=== PATIENT | female | born 1970 | race Caucasian/White ===

== ENCOUNTER 2018-04-14 09:23 | Outpatient (CLI) | payer OTHER, SELFPAY ==
[2018-04-14] VITALS (16 sets, daily range): BP systolic 112–144; BP diastolic 67–95; PULSE 55–71; RESP 9–20; TEMP 36.2; O2SAT 96–100
--- NOTE | 2018-04-14 09:27 | DI.RAD.S_ITS ---
PROCEDURE: PAIN C/T INTERLAMINAR INJECT INDICATIONS: Cervical stenosis with left upper extremity radiculopathy FINDINGS: Fluoroscopic spot filming was performed to verify placement of spinal needles at the C6-7 level(s), as labeled on the films. Appropriate location(s) of the needle tip(s) was confirmed by injection of iodinated contrast. IMPRESSION: Intraoperative documentation of needle placement for epidural injection at the C6-7 level Dictated by: Markos Small M.D. on 04/14/2018 at 14:45 Approved by: Markos Small M.D. on 04/14/2018 at 14:46
--- NOTE | 2018-04-14 09:45 | PM.PROC.1 ---
Procedures Date/Time Date of procedure: 04/14/18 Time of procedure: 09:45 General Procedure description: PREOP DIAGNOSIS 1. CERVICAL STENOSIS, 2. CERVICAL HNP WITH UPPER EXTREMITY RADICULAR FEATURES, POST OP DIAGNOSIS 1. CERVICAL STENOSIS, 2. CERVICAL HNP WITH UPPER EXTREMITY RADICULAR FEATURES, PROCEDURES 1. FLUORSCOPICALLY GUIDED CONTRAST CONTROLLED INTERLAMINAR EPIDURAL STEROID INJECTION - C6/7 TL NAHUM PHYSICIAN: Otoniel Davis, DO INDICATIONS Karlee is referred by Dr. Mcfadden for treatment of Cervical HNP with Upper Extremity Paresthesias. FINDINGS Cervical Stenosis due to disc deterioration and nerve root irritation and nerve root irritation DESCRIPTION OF PROCEDURE Fluoroscopically guided, contrast-controlled C6/7 translaminar epidural steroid injection with conscious sedation. Following denial of allergy and review of potential side effects and complications, including, but not necessarily limited to, infection, allergic reaction, local tissue breakdown, temporary as well as permanent nerve injury, stroke, paralysis, and possible , the patient indicated that patient understood and agreed to proceed. An informed consent document was signed by the patient, witnessed by a nurse, and placed in the patient's chart. Additionally, other treatment options including modalities, medications, and physical therapy were reviewed with the patient. After review of previous anaesthesic history and IV conscious sedation the patient was deemed safe to proceed with todays procedure with IV conscious sedation as ASA class II designation. Safety time-out was performed to confirm patient ID, procedure to be performed and site of procedure. IV sedation was accomplished with a combination of 4mg of Versed and 50mcg of Fentanyl administered by the RN after DO order, titrated to patient comfort during the course of the procedure while the patient remained responsive to all verbal commands. In the prone position, following sterile prep and drape of the cervical region, the C6/7 translaminar space was identified fluoroscopically. The skin was anesthetized via a 25-gauge 1.5-inch needle with 1% lidocaine solution. At this point, a 25-gauge, 2.5-inch short bevel spinal needle was atraumatically introduced and advanced under fluoroscopic guidance into epidural space at the C6/7 translaminar space. Depth was confirmed on lateral view. Radiological data, including multiple fluoroscopic views of the cervical spine, reveal a spinal needle at the C6/7 translaminar space. Lateral views then show placement of the needle in the epidural space. Subsequent views show contrast material flowing superiorly and inferiorly in the epidural space. DSA fluoroscopy with live contrast injection, once again, confirmed no vascular or intrathecal uptake. At this point, using loss of resistance technique with saline and air, the epidural space was entered. Following negative aspiration, injection of approximately 1.5 cc of Isovue-200 with live fluoroscopy in the AP view confirmed epidural flow in the epidural space without vascular or intrathecal uptake observed. Subsequently, a test dose of 1 cc of 1% lidocaine solution was injected and patient was observed for two minutes without signs or symptoms of complications, including abdominal pain, shortness of breath, bilateral upper or lower extremity weakness, nausea and vomiting, prior to steroid injection. At this point, 3 cc or 30 mg of dexamethasone was then injected without incident. The patient tolerated the procedure well without signs or symptoms of complications prior to being transferred to the recovery area for further monitoring, The patient was then transferred to the recovery area where they were observed for an appropriate period of time after the injection. The patient reported a VAS score of 6 prior to the procedure and a post-procedure VAS of 0. Total Fluoroscopy Time: 37.0 seconds Total Conscious Time: 24min POST OP INSTRUCTIONS The patient was provided a Pain Log to continue to record their response to the target-specific procedure prior to follow-up visit with the referring provider. Additionally, specific post-injection care instructions and a contact number to our office were provided if concerns arise regarding possible complications associated with the procedure are suspected. Otoniel Davis DO Complications: none
[2018-04-14] MEDS: IOPAMIDOL 15 ML VIAL 3 ML INJ (10:03)
[2018-04-14] MEDS: DEXAMETHASONE 10 MG/ML VIAL 30 MG INJ (10:04)
[2018-04-14] MEDS: BUPIVACAINE 0.25% (PF) VIAL 2 ML INJ (10:04)
[2018-04-14] MEDS: MIDAZOLAM 5 MG/5 ML VIAL IV (10:05)
[2018-04-14] MEDS: fentaNYL 100 MCG/2 ML INJ 50 MCG IV (10:32)
--- NOTE | 2018-04-15 17:32 | PC.NURSE ---
Called pt for follow up post steroid injection. Pt reports she's been tired all day probably related to her blood sugars being elevated from the steroids. And her pain is tolerable. Her shoulder feels better but the potatoe in her arm is killing her pain 4-01/08. 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 She was really happy with her care here.
== END 2018-04-14 11:30 ==
PROVIDERS: PCP Internal Medicine; Visit Provider Physical Medicine & Rehabilitation
DX: M48.02 Spinal stenosis, cervical region (principal); M54.12 Radiculopathy, cervical region
CPT/HCPCS: 62321; 99152; J1040; J1100; J2250; J3010

== ENCOUNTER 2019-01-14 12:31 | Emergency (ER) | payer OTHER, SELFPAY ==
[2019-01-14 12:45] VITALS: BP 138/72; PULSE 74; RESP 17; TEMP 37.2; O2SAT 100
--- NOTE | 2019-01-14 12:51 | ED.NEUROSD ---
HPI - Neuro Symptoms/Deficit General Chief Complaint: Neuro Symptoms/Deficit Stated Complaint: STROKE LIKE SYMPTOMS Time Seen by Provider: 01/14/19 12:41 Source: patient Mode of arrival: ambulatory Limitations: no limitations History of Present Illness HPI Narrative: The patient is a 48-year-old female who presents with confusion. Off for about the last 2 days she has had episodes where she cannot remember things. 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 She was 18 minutes late seeing her patient which she says she has never late or does, and found herself scanning Facebook, which she typically doesn't do at work. She was at work today and coworkers thought that she had some slurring of speech off and on for about 2 hours. She had no facial drooping or unilateral weakness. She is a diabetic she was initially told to take Glucophage twice a day on the however she did not do it because it caused her diarrhea. She started taking it twice a day 5 days ago. Her sugar previously was about 200-220 and remains about the same. She has not had fevers she has no headache. She overall just does not feel well and feels like something is wrong is no chest pain no shortness of breath Onset (ago): day(s) (2) Timing confirmed by: spouse Location: speech History of same: No On Anticoagulants: No Related Data Home Medications Medication Instructions Recorded Confirmed Lantus U-100 Insulin 17 unit SQ BEDTIME 01/14/19 01/14/19 albuterol sulfate [ProAir HFA] 2 puff INHALATION Q4H PRN 01/14/19 01/14/19 celecoxib [Celebrex] 200 mg PO DAILY 01/14/19 01/14/19 epinephrine 0.3 mg IM PRN PRN 01/14/19 01/14/19 gabapentin 300 mg PO BID-TID 01/14/19 01/14/19 metformin 1 tab PO BID 01/14/19 01/14/19 Previous Rx's Medication Instructions Recorded Novolog U-100 Insulin aspart 5 - 10 unit SQ AC 90 Days #0 04/15/13 Allergies Allergy/AdvReac Type Severity Reaction Status Date / Time Cephalosporins Allergy Unknown Verified 04/14/18 09:47 codeine Allergy Unknown Verified 04/14/18 09:48 erythromycin base Allergy Unknown Verified 04/14/18 09:48 promethazine Allergy Unknown Verified 04/14/18 09:47 Droperidol Allergy Unknown Uncoded 12/10/17 13:01 Ibuprofen Allergy Unknown Uncoded 12/10/17 13:01 Prochlorperazine Allergy Unknown Uncoded 12/10/17 13:01 Review of Systems Review of Systems ROS Unobtainable: All systems reviewed & are unremarkable except as noted in HPI and below Constitutional Denies chills, Denies fever(s), Denies lethargy and Denies weakness Eyes Denies change in vision, Denies eye discharge, Denies irritation and Denies loss of vision Cardiovascular Denies chest pain, Denies irregular heart rhythm, Denies lightheadedness, Denies palpitations, Denies dyspnea, Denies dyspnea on exertion and Denies orthopnea Respiratory Denies cough, Denies dyspnea, Denies dyspnea on exertion and Denies wheezing Gastrointestinal Gastrointestinal: Denies abdominal pain, Denies change in bowel habits, Denies diarrhea, Denies nausea and Denies vomiting Musculoskeletal Denies back pain, Denies muscle weakness, Denies numbness and Denies tingling Integumentary/Breasts Denies pruritus, Denies erythema, Denies rash and Denies wounds Neurologic Reports abnormal speech, Denies loss of vision, Denies numbness, Denies tingling and Denies weakness Endocrine Denies palpitations Allergic/Immunologic Denies wheezing [facility] Medical History Diabetes (Acute) Social History Smoking Status: Former smoker alcohol intake: current (On occasion) substance use type: does not use Social History Smoking Status: Former smoker alcohol intake: current (On occasion) substance use type: does not use Exam Initial Vital Signs Initial Vital Signs: Vital Signs Temperature 99.0 F 01/14/19 12:45 Pulse Rate 74 01/14/19 12:45 Respiratory Rate 17 01/14/19 12:45 Blood Pressure 138/72 01/14/19 12:45 Pulse Oximetry 100 01/14/19 12:45 GENERAL: Well-appearing, well-nourished and in no acute distress. HEENT: Head atraumatic,EOMI, pupils reactive, face symmetric CARDIOVASCULAR: Regular rate and rhythm without murmurs, rubs or gallops. RESPIRATORY: Breath sounds equal bilaterally, no wheezes rales or rhonchi. ABDOMEN: Soft, nontender. Normoactive bowel sounds all 4 quadrants. No guarding or rebound. EXTREMITIES: Normal range of motion, no clubbing or edema. Neurovascularly intact NEUROLOGICAL: Alert and oriented x4.Normal gait and speech. Cranial nerves II through XII grossly intact. Good lklhgf-qj-ecid, good dxcw-jz-nyoy, left arm is actually noted to be a little bit weaker. 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 Scores NIH Stroke Scale Level of Conciousness: Alert, keenly responsive Ask month/age: Answers both questions correctly. Open/close eyes, close hand: Performs both tasks correctly Best gaze horizontal: Normal Visual jackson: No visual loss Facial palsy: Normal symetrical movement Left arm drift: No drift for full 10 sec Right arm drift: No drift for full 10 sec Left leg drift: No drift for full 10 sec Right leg drift: No drift for full 10 sec Limb ataxia: Absent Sensory on face/arms/legs: Normal, no sensory loss Best language: No aphasia, normal Dysarthria: Normal Extinction or inattention: No abnormality Total NIH Stroke scale score: 0 Course Orders Ordered: ED Orders 01/14/19 13:05 CT head/brain wo con Stat 01/14/19 13:30 Complete Blood Count AUTO DIFF Stat Comprehensive Metabolic Panel Stat Partial Thromboplastin Time Stat Prothrombin Time INR Stat 01/14/19 13:49 Lactate (Lactic Acid) Stat 01/14/19 14:02 Urine Drug Screen, Rapid Stat 01/14/19 14:11 MR stroke Stat Sodium Chloride (Normal Saline 0.9%) 1,000 mls @ 150 mls/hr IV CONT TANA Last Infusion: 01/14/19 16:13 Dose: 0 mls/hr Admin: 01/14/19 13:52 Dose: 150 mls/hr Discontinued Medications Lorazepam (Ativan) 1 mg PO NOW ONE Stop: 01/14/19 14:25 Last Admin: 01/14/19 14:27 Dose: Not Given Lorazepam (Ativan) 0.5 mg IV NOW ONE Stop: 01/14/19 14:26 Last Admin: 01/14/19 14:27 Dose: 0.5 mg Lorazepam (Ativan) 0.5 mg IV NOW ONE Stop: 01/14/19 14:49 Last Admin: 01/14/19 14:56 Dose: 0.5 mg Vital Signs - 8 hr 01/14/19 12:45 01/14/19 13:30 01/14/19 15:30 Temperature 99.0 F Pulse Rate 74 72 66 Respiratory Rate 17 10 L 13 Blood Pressure 138/72 Blood Pressure [Right Arm] 131/60 118/65 Pulse Oximetry 100 99 98 01/14/19 17:00 01/14/19 18:00 Temperature Pulse Rate 69 64 Respiratory Rate 15 14 Blood Pressure Blood Pressure [Right Arm] 117/67 113/59 L Pulse Oximetry 99 98 MDM - Neuro Symptoms/Deficit Lab Data Attestation: I reviewed the patient's lab results. Result diagrams: 01/14/19 13:30 01/14/19 13:30 Lab Results 01/14/19 01/14/19 01/14/19 Range/Units 13:30 13:30 13:30 WBC 7.4 (4.5-11.0) X10^3/uL RBC 4.14 (4.0-5.2) X10^6/uL Hgb 12.7 (12.0-16.0) g/dL Hct 37.7 (36-46) % MCV 91.0 (80-100) fL MCH 30.7 (26-34) PG MCHC 33.7 (30-36) % RDW 13.1 (11.6-14.8) % Plt Count 323 (150-400) X10^3/uL Neut % (Auto) 70.0 (50-75) % Lymph % (Auto) 19.3 L (25-40) % [place] % (Auto) 6.8 (3-14) % Eos % (Auto) 3.2 (2-4) % Baso % (Auto) 0.7 (0-2) % Neut # (Auto) 5200 (1867-6176) /uL Lymph # (Auto) 1400 (9897-3051) /uL [place] # (Auto) 500 (0-900) /uL Eos # (Auto) 200 (0-450) /uL Baso # (Auto) 0 (0-100) /uL PT 10.9 (10.1-12.7) SECONDS INR 1.0 (0.9-1.3) APTT 28 (26.4-36.2) SECONDS Sodium 135 L (137-145) mmol/L Potassium 4.0 (3.4-5.1) mmol/L Chloride 102 (98-107) mmol/L Carbon Dioxide 23 (22-32) mmol/L BUN 15 (7-17) mg/dL Creatinine 0.50 L (0.52-1.04) mg/dL Estimated GFR > 60.0 (>60) mL/min BUN/Creatinine Ratio 30.0 H (6-22) Glucose 318 H (70-100) mg/dL Lactate (0.7-2.1) mmol/L Calcium 9.2 (8.4-10.2) mg/dL Total Bilirubin 0.4 (0.2-1.3) mg/dL AST 15 (14-36) IU/L ALT 21 (9-52) IU/L Alkaline Phosphatase 80 (38-126) U/L Total Protein 6.9 (6.3-8.2) g/dL Albumin 4.0 (3.5-5.0) g/dL Globulin 2.9 (1.7-4.1) g/dL Albumin/Globulin Ratio 1.4 (1.0-2.8) Urine Opiates Screen (Negative) Ur Oxycodone Screen (Negative) Urine Methadone Screen (Negative) Ur Barbiturates Screen (Negative) U Tricyclic Antidepress (Negative) Ur Phencyclidine Scrn (Negative) Ur Amphetamines Screen (Negative) U Methamphetamines Scrn (Negative) Ur MDMA Scrn (Ecstasy) (Negative) U Benzodiazepines Scrn (Negative) Urine Cocaine Screen (Negative) U Marijuana (THC) Screen (Negative) 01/14/19 01/14/19 Range/Units 13:49 14:02 WBC (4.5-11.0) X10^3/uL RBC (4.0-5.2) X10^6/uL Hgb (12.0-16.0) g/dL Hct (36-46) % MCV (80-100) fL MCH (26-34) PG MCHC (30-36) % RDW (11.6-14.8) % Plt Count (150-400) X10^3/uL Neut % (Auto) (50-75) % Lymph % (Auto) (25-40) % [place] % (Auto) (3-14) % Eos % (Auto) (2-4) % Baso % (Auto) (0-2) % Neut # (Auto) (8275-6464) /uL Lymph # (Auto) (1055-6743) /uL [place] # (Auto) (0-900) /uL Eos # (Auto) (0-450) /uL Baso # (Auto) (0-100) /uL PT (10.1-12.7) SECONDS INR (0.9-1.3) APTT (26.4-36.2) SECONDS Sodium (137-145) mmol/L Potassium (3.4-5.1) mmol/L Chloride (98-107) mmol/L Carbon Dioxide (22-32) mmol/L BUN (7-17) mg/dL Creatinine (0.52-1.04) mg/dL Estimated GFR (>60) mL/min BUN/Creatinine Ratio (6-22) Glucose (70-100) mg/dL Lactate 0.9 (0.7-2.1) mmol/L Calcium (8.4-10.2) mg/dL Total Bilirubin (0.2-1.3) mg/dL AST (14-36) IU/L ALT (9-52) IU/L Alkaline Phosphatase (38-126) U/L Total Protein (6.3-8.2) g/dL Albumin (3.5-5.0) g/dL Globulin (1.7-4.1) g/dL Albumin/Globulin Ratio (1.0-2.8) Urine Opiates Screen Negative (Negative) Ur Oxycodone Screen Negative (Negative) Urine Methadone Screen Negative (Negative) Ur Barbiturates Screen Negative (Negative) U Tricyclic Antidepress Negative (Negative) Ur Phencyclidine Scrn Negative (Negative) Ur Amphetamines Screen Negative (Negative) U Methamphetamines Scrn Negative (Negative) Ur MDMA Scrn (Ecstasy) Negative (Negative) U Benzodiazepines Scrn Negative (Negative) Urine Cocaine Screen Negative (Negative) U Marijuana (THC) Screen Negative (Negative) Urine Dip Bedside Urine Glucose 1000 mg/dl Bedside Urine Bilirubin - Negative Bedside Urine Ketone +/- 5 Urine Specific [place] 1.020 Bedside Urine Occult Blood - Negative Bedside Urine pH 6.0 Bedside Urine Protein - Negative Bedside Urine Urobilinogen - Negative Bedside Urine Nitrite - Negative Bedside Urine Leukocytes - Negative Esterase Imaging Data CT scan - head: Radiologist's impression: PROCEDURE: CT HEAD/BRAIN WO CON INDICATIONS: confusion TECHNIQUE: Noncontrast 4.5 mm thick angled axial sections acquired from the foramen magnum to the vertex, with coronal and sagittal reformats. For radiation dose reduction, the following was used: automated exposure control, adjustment of mA and/or kV according to patient size. COMPARISON: [facility], CT, BRAIN W/O CONTRAST, 04/07/2014, 9:00. FINDINGS: Image quality: Excellent. CSF spaces: Basal cisterns are patent. No extra-axial fluid collections. Ventricles are normal in size and shape. Brain: No midline shift. No intracranial masses or hemorrhage. Perez-white matter interface is normal. Skull and face: Calvarium and visualized facial bones are intact, without suspicious lesions. Sinuses: Visualized sinuses and mastoids are clear. IMPRESSION: Unremarkable head CT. No acute intracranial hemorrhage. Dictated by: Natalio Wall M.D. on 01/14/2019 at 12:25 MRI - head: Radiologist's impression: PROCEDURE: MR STROKE Pre- and post-contrast brain MRI, non-contrast brain MR angiogram, pre- and postcontrast neck MR angiogram INDICATIONS: tia x 2 days confusion speech difficulty TECHNIQUE: Brain: Noncontrast axial T1 spin echo, axial T2 fast spin echo, sagittal and axial FLAIR, coronal T2 fast spin echo, axial gradient echo, axial diffusion and ADC through the brain. After the administration of contrast, axial 3D VIBE of the cranial vasculature and brain. Brain MRA: Non-contrast 3-D time of flight MR angiogram, with multiple lkwlodj-tzzckczxu-krgdqdeswv (MIP) reformats performed. Neck MRA: Axial and sagittal TruFISP through the neck. Coronal dynamic MR angiogram during administration of contrast in the arterial and venous phases, with 3-dimenstional iixfwvo-rwjsqwwpx-juoazehyry (MIP) reformats constructed from subtraction images. COMPARISON: [facility], CT, CT HEAD/BRAIN WO CON, 01/14/2019, 13:08. FINDINGS: Image quality: Excellent. BRAIN: CSF spaces: Ventricles are normal in size and shape. Basal cisterns are patent. No extra-axial fluid collections. Brain: No intracranial bleeds or mass effects. Perez-white matter interface is normal. Diffusion weighted images show no acute ischemic insults. Brainstem appears normal. Normal intravascular flow voids are present. No abnormal intracranial enhancement. Skull and face: Calvarial marrow signal is normal. Orbits appear normal. Sinuses: Mastoids are clear. Mild mucosal thickening involving the ethmoid sinuses bilaterally and the right maxillary sinus. BRAIN MR ANGIOGRAM: Anterior circulation: Intracranial internal carotid arteries are normal in size and enhancement. The flow within the paired anterior cerebral arteries is normal and symmetric. 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 The flow within the middle cerebral arteries is normal and symmetric. The anterior communicating artery is seen. No stenoses or occlusions. Posterior circulation: The visualized portions of the vertebral arteries demonstrate normal caliber, and join to form a normal appearing basilar artery. The flow within the posterior cerebral arteries is normal and symmetric. No stenoses, occlusions, or aneurysms. NECK MR ANGIOGRAM: Carotids: Great vessels demonstrate a conventional anatomy as they arise from the aortic arch. The origins of the common carotid arteries appear patent. The calibers and courses of both common carotid arteries are normal. The bifurcation regions appear normal bilaterally. The internal carotid arteries demonstrate normal course and caliber. Posterior circulation: The origins of the vertebral arteries appear patent. More superior portions of both vertebral arteries demonstrate normal course and caliber, and join to form a normal appearing basilar artery. Miscellaneous: Subclavian arteries appear patent. Pre-contrast images through the neck show no soft tissue abnormalities. IMPRESSION: BRAIN MRI: 1. No acute intracranial abnormalities. 2. Mild paranasal sinus disease as described. BRAIN MR ANGIOGRAM: 1. No high-grade stenosis or occlusion in anterior circulations. 2. No high-grade stenosis or occlusion in posterior circulations. 3. 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 NECK MR ANGIOGRAM: 1. Normal cervical carotid arteries bilaterally. 2. Normal cervical vertebral arteries bilaterally. Dictated by: Kaya Guzman M.D. on 01/14/2019 at 15:56 ECG Data Attestation: I personally reviewed and interpreted this ECG as follows: Prior ECG tracings: not available for review Interpretation: Normal sinus rhythm rate 64 GA interval [address] changes or T-wave inversions no priors to compare MDM Narrative Medical decision making narrative: Patient has episodes of confusion but no actual focal deficits. No sign of infection. Diabetes seems uncontrolled with elevated glucose levels. Confusion not likely related to increase in metformin. She has no headache. MRI did find a 2 mm saccular aneurysm. This is an incidental. She has no headache signs or symptoms. I have called neuro surgery at [facility], Dr. Fonseca. Recommend outpatient follow-up. No focal deficits at this time. Her phone number was given to them and expect call within the next 2 days. Discharge Plan Departure Patient Disposition: Home Clinical Impression: Aneurysm, cerebral, nonruptured Instructions: DI for Transient Ischemic Attack, Brain Aneurysm Activity Restrictions/Additional Instructions: *You have been diagnosed with cerebral aneurysm *What to do: At this time no cause for confusion. Diabetes may not be well controlled. *Continue to take medications as directed *Follow up with your primary care provider in 2-3 days Follow-up with neurosurgery. Expected to have a phone call from them in the next 2-3 business days. *Return to ER if you should have worsening headache, weakness, facial drooping, slurring of speech, speech difficulty or any new, worsening or concerning symptoms Prescriptions: No Action Novolog U-100 Insulin aspart 100 UNIT/1 ML solution 5 - 10 unit SQ AC 90 Days Qty: 0 RF: 3 celecoxib [Celebrex] 200 mg Capsule 200 mg PO DAILY RF: 0 albuterol sulfate [ProAir HFA] 90 mcg/actuation Hfa Aerosol Inhaler 2 puff Inhalation Q4H PRN (Reason: Shortness Of Breath) RF: 0 metformin 500 mg Tablet Extended Release 24 Hr 1 tab PO BID RF: 0 Lantus U-100 Insulin 100 UNIT/1 ML solution 17 unit SQ BEDTIME RF: 0 gabapentin 300 mg capsule 300 mg PO BID-TID RF: 0 epinephrine 0.3 MG/0.3 ML auto-injector 0.3 mg IM PRN PRN (Reason: Allergic Reaction) RF: 0 Referrals: Ulisses Mcfadden MD [Primary Care Provider] - Stand Alone Forms: Work Release Note
--- NOTE | 2019-01-14 13:05 | DI.CT.S_ITS ---
PROCEDURE: CT HEAD/BRAIN WO CON INDICATIONS: confusion TECHNIQUE: Noncontrast 4.5 mm thick angled axial sections acquired from the foramen magnum to the vertex, with coronal and sagittal reformats. For radiation dose reduction, the following was used: automated exposure control, adjustment of mA and/or kV according to patient size. COMPARISON: [facility], CT, BRAIN W/O CONTRAST, 04/07/2014, 9:00. FINDINGS: Image quality: Excellent. CSF spaces: Basal cisterns are patent. No extra-axial fluid collections. Ventricles are normal in size and shape. Brain: No midline shift. No intracranial masses or hemorrhage. Perez-white matter interface is normal. Skull and face: Calvarium and visualized facial bones are intact, without suspicious lesions. Sinuses: Visualized sinuses and mastoids are clear. IMPRESSION: Unremarkable head CT. No acute intracranial hemorrhage. Dictated by: Natalio Wall M.D. on 01/14/2019 at 12:25 Approved by: Natalio Wall M.D. on 01/14/2019 at 12:28
[2019-01-14 13:30] VITALS: BP 131/60; PULSE 72; RESP 10; O2SAT 99
[2019-01-14 13:47] LABS: Add Manual Diff / Slide Review NO; Basophils Absolute Auto 0 /uL (0-100); Basophils Percent Auto 0.7 % (0-2); Eosinophils Absolute Auto 200 /uL (0-450); Eosinophils Percent Auto 3.2 % (2-4); Hematocrit 37.7 % (36-46); Hemoglobin 12.7 g/dL (12.0-16.0); Lymphocytes Absolute Auto 1400 /uL (1100-4500); Lymphocytes Percent Auto 19.3 % (25-40); Mean Corpuscular HGB Conc 33.7 % (30-36); Mean Corpuscular Hemoglobin 30.7 PG (26-34); Monocytes Absolute Auto 500 /uL (0-900); Monocytes Percent Auto 6.8 % (3-14); Neutrophils Absolute Auto 5200 /uL (1500-7000); Platelet Count 323 X10^3/uL (150-400); Red Blood Cell Count 4.14 X10^6/uL (4.0-5.2); Red Cell Distribution Width 13.1 % (11.6-14.8); White Blood Cell Count 7.4 X10^3/uL (4.5-11.0)
[2019-01-14] MEDS: SODIUM CHLORIDE 0.9% 1,000 ML 150 ML IV (13:52)
[2019-01-14 13:56] LABS: Prothrombin Time 10.9 SECONDS (10.1-12.7)
[2019-01-14 13:59] LABS: PTT Partial Thromboplastin Tim 28 SECONDS (26.4-36.2)
[2019-01-14 14:04] LABS: Alanine Aminotransferase 21 IU/L (9-52); Albumin Globulin Ratio 1.4 (1.0-2.8); Alkaline Phosphatase 80 U/L (38-126); Aspartate Aminotransferase 15 IU/L (14-36); Bilirubin Total 0.4 mg/dL (0.2-1.3); Blood Urea Nitrogen 15 mg/dL (7-17); Calcium 9.2 mg/dL (8.4-10.2); Carbon Dioxide 23 mmol/L (22-32); Chloride 102 mmol/L (98-107); Estimated Glomerular Filt Rate > 60.0 mL/min (>60); Globulin 2.9 g/dL (1.7-4.1); Glucose 318 mg/dL (70-100); HEMOLYSIS < 15 (0-50); Sodium 135 mmol/L (137-145); Total Protein 6.9 g/dL (6.3-8.2)
[2019-01-14 14:10] LABS: Lactate (Lactic Acid) 0.9 mmol/L (0.7-2.1)
--- NOTE | 2019-01-14 14:11 | DI.MRI.S_ITS ---
PROCEDURE: MR STROKE Pre- and post-contrast brain MRI, non-contrast brain MR angiogram, pre- and postcontrast neck MR angiogram INDICATIONS: tia x 2 days confusion speech difficulty TECHNIQUE: Brain: Noncontrast axial T1 spin echo, axial T2 fast spin echo, sagittal and axial FLAIR, coronal T2 fast spin echo, axial gradient echo, axial diffusion and ADC through the brain. After the administration of contrast, axial 3D VIBE of the cranial vasculature and brain. Brain MRA: Non-contrast 3-D time of flight MR angiogram, with multiple baxlnvb-odjdqfkvh-rjxgrteoac (MIP) reformats performed. Neck MRA: Axial and sagittal TruFISP through the neck. Coronal dynamic MR angiogram during administration of contrast in the arterial and venous phases, with 3-dimenstional emgjdng-acczoujkg-zhzdguhidv (MIP) reformats constructed from subtraction images. COMPARISON: [facility], CT, CT HEAD/BRAIN WO CON, 01/14/2019, 13:08. FINDINGS: Image quality: Excellent. BRAIN: CSF spaces: Ventricles are normal in size and shape. Basal cisterns are patent. No extra-axial fluid collections. Brain: No intracranial bleeds or mass effects. Perez-white matter interface is normal. Diffusion weighted images show no acute ischemic insults. Brainstem appears normal. Normal intravascular flow voids are present. No abnormal intracranial enhancement. Skull and face: Calvarial marrow signal is normal. Orbits appear normal. Sinuses: Mastoids are clear. Mild mucosal thickening involving the ethmoid sinuses bilaterally and the right maxillary sinus. BRAIN MR ANGIOGRAM: Anterior circulation: Intracranial internal carotid arteries are normal in size and enhancement. The flow within the paired anterior cerebral arteries is normal and symmetric. 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 The flow within the middle cerebral arteries is normal and symmetric. The anterior communicating artery is seen. No stenoses or occlusions. Posterior circulation: The visualized portions of the vertebral arteries demonstrate normal caliber, and join to form a normal appearing basilar artery. The flow within the posterior cerebral arteries is normal and symmetric. No stenoses, occlusions, or aneurysms. NECK MR ANGIOGRAM: Carotids: Great vessels demonstrate a conventional anatomy as they arise from the aortic arch. The origins of the common carotid arteries appear patent. The calibers and courses of both common carotid arteries are normal. The bifurcation regions appear normal bilaterally. The internal carotid arteries demonstrate normal course and caliber. Posterior circulation: The origins of the vertebral arteries appear patent. More superior portions of both vertebral arteries demonstrate normal course and caliber, and join to form a normal appearing basilar artery. Miscellaneous: Subclavian arteries appear patent. Pre-contrast images through the neck show no soft tissue abnormalities. IMPRESSION: BRAIN MRI: 1. No acute intracranial abnormalities. 2. Mild paranasal sinus disease as described. BRAIN MR ANGIOGRAM: 1. No high-grade stenosis or occlusion in anterior circulations. 2. No high-grade stenosis or occlusion in posterior circulations. 3. 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 NECK MR ANGIOGRAM: 1. Normal cervical carotid arteries bilaterally. 2. Normal cervical vertebral arteries bilaterally. Dictated by: Kaya Guzman M.D. on 01/14/2019 at 15:56 Approved by: Kaya Guzman M.D. on 01/14/2019 at 16:07
[2019-01-14 14:23] LABS: Urine Amphetamines Negative (Negative); Urine Barbiturates Negative (Negative); Urine Benzodiazepines Negative (Negative); Urine Cocaine Negative (Negative); Urine MDMA Negative (Negative); Urine Methadone Negative (Negative); Urine Methamphetamines Negative (Negative); Urine Morphine/Opi cutoff 2000 Negative (Negative); Urine Oxycodone Negative (Negative); Urine Phencyclidine Negative (Negative); Urine Tetrahydrocannabinol Negative (Negative); Urine Tricyclic Antidepressant Negative (Negative)
[2019-01-14] MEDS: LORazepam 2 MG/ML INJ 0.5 MG IV ×2 (14:27→14:56)
[2019-01-14 15:30] VITALS: BP 118/65; PULSE 66; RESP 13; O2SAT 98
[2019-01-14 17:00] VITALS: BP 117/67; PULSE 69; RESP 15; O2SAT 99
[2019-01-14 18:00] VITALS: BP 113/59; PULSE 64; RESP 14; O2SAT 98
== END 2019-01-14 19:06 | disposition home or self-care (01) ==
PROVIDERS: Emergency Provider Emergency Medicine; PCP Internal Medicine
DX: I67.1 Cerebral aneurysm, nonruptured (principal); R47.81 Slurred speech; R41.0 Disorientation, unspecified
CPT/HCPCS: 36591; 70450; 70548; 70553; 80053; 80305; 81003; 83605; 85025; 85610; 85730; 93005; 93010; 96361; 96374; 99283; 99285; 99291; A9579; J2060

== ENCOUNTER 2019-09-25 16:59 | Emergency (ER) | payer OTHER, SELFPAY ==
--- NOTE | 2019-09-25 17:26 | DI.RAD.S_ITS ---
PROCEDURE: XR CHEST 2V INDICATIONS: r/o pna TECHNIQUE: 2 views of the chest were acquired. COMPARISON: [facility], , CHEST 2 VIEW, 12/24/2011, 9:53. FINDINGS: Surgical changes and devices: None. Lungs and pleura: Lungs are clear. No pleural effusions or pneumothorax. Small calcified granuloma on the lateral margin of the left mid lung is present. Mediastinum: Mediastinal contours are normal. Heart size is normal. Bones and chest wall: No suspicious bony abnormalities. Soft tissues appear unremarkable. IMPRESSION: Negative chest. No acute cardiopulmonary process is evident. Dictated by: Natalio Wall M.D. on 09/25/2019 at 16:53 Approved by: Natalio Wall M.D. on 09/25/2019 at 16:53
[2019-09-25 17:29] VITALS: BP 139/72; PULSE 65; RESP 14; TEMP 37.2; O2SAT 99
[2019-09-25 18:21] LABS: Add Manual Diff / Slide Review NO; Basophils Absolute Auto 0 /uL (0-100); Basophils Percent Auto 0.5 % (0-2); Eosinophils Absolute Auto 300 /uL (0-450); Hematocrit 37.6 % (36-46); Hemoglobin 12.7 g/dL (12.0-16.0); Lymphocytes Absolute Auto 1000 /uL (1100-4500); Lymphocytes Percent Auto 23.8 % (25-40); Mean Corpuscular HGB Conc 33.7 % (30-36); Mean Corpuscular Hemoglobin 31.1 PG (26-34); Mean Corpuscular Volume 92.3 fL (80-100); Monocytes Absolute Auto 400 /uL (0-900); Neutrophils Absolute Auto 2600 /uL (1500-7000); Neutrophils Percent Auto 59.7 % (50-75); Platelet Count 224 X10^3/uL (150-400); Red Blood Cell Count 4.07 X10^6/uL (4.0-5.2); Red Cell Distribution Width 13.4 % (11.6-14.8); White Blood Cell Count 4.3 X10^3/uL (4.5-11.0)
[2019-09-25 18:33] LABS: Alanine Aminotransferase 31 IU/L (<35); Albumin 4.1 g/dL (3.5-5.0); Albumin Globulin Ratio 1.3 (1.0-2.8); Alkaline Phosphatase 116 U/L (38-126); Aspartate Aminotransferase 32 IU/L (14-36); Bilirubin Total 0.3 mg/dL (0.2-1.3); Blood Urea Nitrogen 10 mg/dL (7-17); Calcium 9.2 mg/dL (8.4-10.2); Carbon Dioxide 23 mmol/L (22-32); Chloride 100 mmol/L (98-107); Estimated Glomerular Filt Rate > 60.0 mL/min (>60); Globulin 3.1 g/dL (1.7-4.1); Glucose 255 mg/dL (70-100); HEMOLYSIS < 15 (0-50); Potassium 3.7 mmol/L (3.4-5.1); Sodium 135 mmol/L (137-145); Total Protein 7.2 g/dL (6.3-8.2)
[2019-09-25 18:41] LABS: B Type Natriuretic Peptide < 100 (<100)
[2019-09-25] MEDS: DOXYCYCLINE HYCLATE 100 MG TABLET PO (19:17)
[2019-09-25] MEDS: CODEINE/ACETAMINOPHEN 30/300 TABLET 1 TAB PO (19:17)
[2019-09-25] MEDS: DEXTROMETHORPHAN PO (19:24)
[2019-09-25] MEDS: GUAIFENESIN PO (19:24)
[2019-09-25 19:44] VITALS: BP 134/77; PULSE 74; RESP 16; O2SAT 97
--- NOTE | 2019-09-25 20:14 | ED_ITS ---
HPI - URI/Sore Throat <Yoanna Marte, [employer] - Last Filed: 09/25/19 20:18> General Chief Complaint: Upper Respiratory Symptoms Stated Complaint: thinks she has pneumonia Time Seen by Provider: 09/25/19 17:27 Source: patient and family Mode of arrival: Ambulatory Limitations: no limitations History of Present Illness HPI Narrative: The patient is a 49-year-old female former smoker with history of diabetes who presents with her for chief complaint of a productive cough for the past 2-3 weeks. She complains of associated muscle aches and chills. She has a history of asthma. She has a productive cough, states as though she feels that she has rattling in her chest. She states she is coughing up different colored mucus. She is concerned that she has pneumonia. She has been using her albuterol. Does complain of some ear pain, muscle aches from coughing, states that she is unable to sleep. She states that she is coughing so much that she is very uncomfortable. Denies any nausea vomiting or diarrhea. Related Data Home Medications Medication Instructions Recorded Confirmed Lantus U-100 Insulin 17 unit SQ BEDTIME 01/14/19 01/14/19 albuterol sulfate [ProAir HFA] 2 puff INHALATION Q4H PRN 01/14/19 01/14/19 celecoxib [Celebrex] 200 mg PO DAILY 01/14/19 01/14/19 epinephrine 0.3 mg IM PRN PRN 01/14/19 01/14/19 gabapentin 300 mg PO BID-TID 01/14/19 01/14/19 metformin 1 tab PO BID 01/14/19 01/14/19 Previous Rx's Medication Instructions Recorded Novolog U-100 Insulin aspart 5 - 10 unit SQ AC 90 Days #0 04/15/13 codeine-guaifenesin [Guaifenesin 10 ml PO Q4-6H PRN #120 ml 09/25/19 AC] doxycycline hyclate 100 mg PO BID #20 cap 09/25/19 Allergies Allergy/AdvReac Type Severity Reaction Status Date / Time Cephalosporins Allergy Unknown Verified 04/14/18 09:47 codeine Allergy Unknown Verified 04/14/18 09:48 erythromycin base Allergy Unknown Verified 04/14/18 09:48 promethazine Allergy Unknown Verified 04/14/18 09:47 Droperidol Allergy Unknown Uncoded 12/10/17 13:01 Ibuprofen Allergy Unknown Uncoded 12/10/17 13:01 Prochlorperazine Allergy Unknown Uncoded 12/10/17 13:01 Review of Systems <PARVIZ DeanP- - Last Filed: 09/25/19 20:18> Review of Systems Narrative: GENERAL: See HPI HEENT: Denies sinus pain, ear pain, sore throat, difficulty swallowing, dizziness. RESPIRATORY: See HPI CARDIOVASCULAR: Denies chest pain, palpitations, orthopnea, edema, GASTROINTESTINAL: Denies nausea, vomiting, abdominal pain, diarrhea, constipation, melena. : Denies dysuria, frequency, incontinence, hematuria, urinary retention. MUSCULOSKELETAL: denies weakness, joint pain, or bony pain SKIN: Denies rash, skin lesions, or other NEUROLOGIC: Denies weakness, headache, numbness, change in speech, confusion, seizures, incoordination. PSYCHIATRIC: No concerning psychosocial issues. 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 HEAD: Atraumatic. Normocephalic. No temporal or scalp tenderness. EYES: Pupils equal round and reactive. Extraocular motions intact. No scleral icterus. No injection or drainage. ENT: Nose without bleeding, purulent drainage or septal hematoma. Throat without erythema, tonsillar hypertrophy or exudate. Uvula midline. Airway patent. Bilateral TMs pearly barajas NECK: Trachea midline. No JVD or lymphadenopathy. Supple, nontender, no meningeal signs. CARDIOVASCULAR: Regular rate and rhythm RESPIRATORY: Crackles right lower lobe to auscultation. No wheezes, rales, or rhonchi. GASTROINTESTINAL: Abdomen soft, non-tender, nondistended. No hepato- splenomegaly, or palpable masses. No guarding. EXTREMITIES: No clubbing, cyanosis, or edema. No joint tenderness, effusion, or edema noted. BACK: Nontender without deformity or crepitance. No flank tenderness. NEURO: AOx3. SKIN: No rash or erythema on visible skin Initial Vital Signs Initial Vital Signs: Vital Signs Temperature 98.9 F 09/25/19 17:29 Pulse Rate 65 09/25/19 17:29 Respiratory Rate 14 09/25/19 17:29 Blood Pressure 139/72 09/25/19 17:29 Pulse Oximetry 99 09/25/19 17:29 <Oziel Chau DO - Last Filed: 09/25/19 21:23> Initial Vital Signs Initial Vital Signs: Vital Signs Temperature 98.9 F 09/25/19 17:29 Pulse Rate 65 09/25/19 17:29 Respiratory Rate 14 09/25/19 17:29 Blood Pressure 139/72 09/25/19 17:29 Pulse Oximetry 99 09/25/19 17:29 Scores <NE Dean - Last Filed: 09/25/19 20:18> GCS Amy coma scale eye opening: Spontaneous Amy coma scale verbal response: Orientated [place] coma scale motor response: Obey commands [place] coma scale total score: 15 Course <NE Dean - Last Filed: 09/25/19 20:18> Orders Ordered: ED Orders 09/25/19 17:26 Chest [XR chest 2V] Stat 09/25/19 18:12 B Type Natriuretic Peptide Stat CMP [Comprehensive Metabolic Panel] Stat Complete Blood Count AUTO DIFF Stat Discontinued Medications Acetaminophen/Codeine Phosphate (Tylenol #3) 1 tab PO NOW ONE Stop: 09/25/19 19:05 Last Admin: 09/25/19 19:17 Dose: 1 tab Documented by: DEVAN Doxycycline Hyclate (Vibramycin) 100 mg PO NOW ONE Stop: 09/25/19 19:05 Last Admin: 09/25/19 19:17 Dose: 100 mg Documented by: DEVAN Guaifenesin/Dextromethorphan (Robitussin Dm Syrup) 10 ml PO NOW ONE Stop: 09/25/19 19:05 Last Admin: 09/25/19 19:24 Dose: 10 ml Documented by: DEVAN Vital Signs Vital signs: Vital Signs - 8 hr 09/25/19 17:29 09/25/19 19:44 Temperature 98.9 F Pulse Rate 65 74 Respiratory Rate 14 16 Blood Pressure 139/72 134/77 Pulse Oximetry 99 97 <Oziel Chau DO - Last Filed: 09/25/19 21:23> Orders Ordered: ED Orders 09/25/19 17:26 Chest [XR chest 2V] Stat 09/25/19 18:12 B Type Natriuretic Peptide Stat CMP [Comprehensive Metabolic Panel] Stat Complete Blood Count AUTO DIFF Stat Discontinued Medications Acetaminophen/Codeine Phosphate (Tylenol #3) 1 tab PO NOW ONE Stop: 09/25/19 19:05 Last Admin: 09/25/19 19:17 Dose: 1 tab Documented by: DEVAN Doxycycline Hyclate (Vibramycin) 100 mg PO NOW ONE Stop: 09/25/19 19:05 Last Admin: 09/25/19 19:17 Dose: 100 mg Documented by: DEVAN Guaifenesin/Dextromethorphan (Robitussin Dm Syrup) 10 ml PO NOW ONE Stop: 09/25/19 19:05 Last Admin: 09/25/19 19:24 Dose: 10 ml Documented by: DEVAN Vital Signs Vital signs: Vital Signs - 8 hr 09/25/19 17:29 09/25/19 19:44 Temperature 98.9 F Pulse Rate 65 74 Respiratory Rate 14 16 Blood Pressure 139/72 134/77 Pulse Oximetry 99 97 MDM - URI/Sore Throat <NE Dean - Last Filed: 09/25/19 20:18> Lab Data Result diagrams: 09/25/19 18:12 09/25/19 18:12 Labs: Lab Results 09/25/19 09/25/19 09/25/19 Range/Units 18:12 18:12 18:12 WBC 4.3 L (4.5-11.0) X10^3/uL RBC 4.07 (4.0-5.2) X10^6/uL Hgb 12.7 (12.0-16.0) g/dL Hct 37.6 (36-46) % MCV 92.3 (80-100) fL MCH 31.1 (26-34) PG MCHC 33.7 (30-36) % RDW 13.4 (11.6-14.8) % Plt Count 224 (150-400) X10^3/uL Neut % (Auto) 59.7 (50-75) % Lymph % (Auto) 23.8 L (25-40) % [place] % (Auto) 9.0 (3-14) % Eos % (Auto) 7.0 H (2-4) % Baso % (Auto) 0.5 (0-2) % Neut # (Auto) 2600 (0305-6496) /uL Lymph # (Auto) 1000 L (1877-5153) /uL [place] # (Auto) 400 (0-900) /uL Eos # (Auto) 300 (0-450) /uL Baso # (Auto) 0 (0-100) /uL Sodium 135 L (137-145) mmol/L Potassium 3.7 (3.4-5.1) mmol/L Chloride 100 (98-107) mmol/L Carbon Dioxide 23 (22-32) mmol/L BUN 10 (7-17) mg/dL Creatinine 0.40 L (0.52-1.04) mg/dL Estimated GFR > 60.0 (>60) mL/min BUN/Creatinine Ratio 25.0 H (6-22) Glucose 255 H (70-100) mg/dL Calcium 9.2 (8.4-10.2) mg/dL Total Bilirubin 0.3 (0.2-1.3) mg/dL AST 32 (14-36) IU/L ALT 31 (<35) IU/L Alkaline Phosphatase 116 (38-126) U/L B-Natriuretic Peptide < 100 (<100) Total Protein 7.2 (6.3-8.2) g/dL Albumin 4.1 (3.5-5.0) g/dL Globulin 3.1 (1.7-4.1) g/dL Albumin/Globulin Ratio 1.3 (1.0-2.8) Imaging Data Chest x-ray: Radiologist's Impression: [facility] [place] [id number] XRay Report Signed Patient: Karlee Naranjo TEJR#: [id number] : 1970Acct:[id number] Age/Sex: 49 / FDate of Service: 09/25/19 Loc: ED Accession Number: [id number] Procedure: XR chest 2V Ordering Provider: Lea Brown D.O. PROCEDURE: XR CHEST 2V INDICATIONS: r/o pna TECHNIQUE: 2 views of the chest were acquired. COMPARISON: [facility], CHEST 2 VIEW, 12/24/2011, 9:53. FINDINGS: Surgical changes and devices: None. Lungs and pleura: Lungs are clear. No pleural effusions or pneumothorax. Small calcified granuloma on the lateral margin of the left mid lung is present. Mediastinum: Mediastinal contours are normal. Heart size is normal. Bones and chest wall: No suspicious bony abnormalities. Soft tissues appear unremarkable. IMPRESSION: Negative chest. No acute cardiopulmonary process is evident. Dictated by: Natalio Wall M.D. on 09/25/2019 at 16:53 Approved by: Natalio Wall M.D. on 09/25/2019 at 16:53 MDM Narrative Medical decision making narrative: The patient is a 49-year-old female with history of asthma and diabetes who presents with a chief complaint of a productive cough, as well as muscle aches and chills. Given her exam, crackles to auscultation, comorbidities of asthma and diabetes we elected to treat her with antibiotics. She does have a history of C diff caused by cephalexin or cephalosporins, so these were avoided. Elected use doxycycline, discussed strict instructions to take it with probiotic or yogurt. Patient states she understands that any antibiotic increases her risk of repeat C diff. Did elect to use guaifenesin with codeine to help her sleep. Discussed at length the importance of follow-up with primary care provider, as well as come back to the emergency department for any acute concerns such as chest pain, shortness of breath etcetera. Patient has been of no questions or concerns upon discharge and state understanding of return precautions as well as follow-up care. <Oziel Chau, - Last Filed: 09/25/19 21:23> Lab Data Labs: Lab Results 09/25/19 09/25/19 09/25/19 Range/Units 18:12 18:12 18:12 WBC 4.3 L (4.5-11.0) X10^3/uL RBC 4.07 (4.0-5.2) X10^6/uL Hgb 12.7 (12.0-16.0) g/dL Hct 37.6 (36-46) % MCV 92.3 (80-100) fL MCH 31.1 (26-34) PG MCHC 33.7 (30-36) % RDW 13.4 (11.6-14.8) % Plt Count 224 (150-400) X10^3/uL Neut % (Auto) 59.7 (50-75) % Lymph % (Auto) 23.8 L (25-40) % [place] % (Auto) 9.0 (3-14) % Eos % (Auto) 7.0 H (2-4) % Baso % (Auto) 0.5 (0-2) % Neut # (Auto) 2600 (9019-6997) /uL Lymph # (Auto) 1000 L (4466-0948) /uL [place] # (Auto) 400 (0-900) /uL Eos # (Auto) 300 (0-450) /uL Baso # (Auto) 0 (0-100) /uL Sodium 135 L (137-145) mmol/L Potassium 3.7 (3.4-5.1) mmol/L Chloride 100 (98-107) mmol/L Carbon Dioxide 23 (22-32) mmol/L BUN 10 (7-17) mg/dL Creatinine 0.40 L (0.52-1.04) mg/dL Estimated GFR > 60.0 (>60) mL/min BUN/Creatinine Ratio 25.0 H (6-22) Glucose 255 H (70-100) mg/dL Calcium 9.2 (8.4-10.2) mg/dL Total Bilirubin 0.3 (0.2-1.3) mg/dL AST 32 (14-36) IU/L ALT 31 (<35) IU/L Alkaline Phosphatase 116 (38-126) U/L B-Natriuretic Peptide < 100 (<100) Total Protein 7.2 (6.3-8.2) g/dL Albumin 4.1 (3.5-5.0) g/dL Globulin 3.1 (1.7-4.1) g/dL Albumin/Globulin Ratio 1.3 (1.0-2.8) Discharge Plan Departure Patient Disposition: Home Clinical Impression: Acute lower respiratory infection Discharge Date/Time: 09/25/19 19:44 Instructions: DI for Pneumonia -- Adult, DI for Atypical Pneumonia Activity Restrictions/Additional Instructions: Thank you for trusting us with your care today Given your comorbidities, productive cough on exam we have elected to treat you with antibiotics. Please follow-up with your primary care provider in the next few days Please rest and push fluids Please take antibiotics with yogurt or probiotic. Please continue your inhaler as needed. I sent in a prescription of guaifenesin with codeine You have been prescribed narcotic medications. While on these medications you cannot drive or operate heavy machinery. Additionally you cannot sign legal documents or perform any duties such as this. Many people get constipated on narcotic medications so it would be advisable to discuss stool softeners with the pharmacist when you cloth picker your prescription. Please come back to the emergency department for any acute concerns Prescriptions: New doxycycline hyclate 100 mg capsule 100 mg PO BID Qty: 20 RF: 0 codeine-guaifenesin [Guaifenesin AC] 10-100 mg/5 mL liquid 10 ml PO Q4-6H PRN (Reason: cough) Qty: 120 RF: 0 No Action Novolog U-100 Insulin aspart 100 UNIT/1 ML solution 5 - 10 unit SQ AC 90 Days Qty: 0 RF: 3 celecoxib [Celebrex] 200 mg Capsule 200 mg PO DAILY RF: 0 albuterol sulfate [ProAir HFA] 90 mcg/actuation Hfa Aerosol Inhaler 2 puff Inhalation Q4H PRN (Reason: Shortness Of Breath) RF: 0 metformin 500 mg Tablet Extended Release 24 Hr 1 tab PO BID RF: 0 Lantus U-100 Insulin 100 UNIT/1 ML solution 17 unit SQ BEDTIME RF: 0 gabapentin 300 mg capsule 300 mg PO BID-TID RF: 0 epinephrine 0.3 MG/0.3 ML auto-injector 0.3 mg IM PRN PRN (Reason: Allergic Reaction) RF: 0 Referrals: Ulisses Mcfadden MD [Primary Care Provider] - Stand Alone Forms: Work Release Note <Oziel Chau DO - Last Filed: 09/25/19 21:23> Sign Out Provider Sign Out Attestation: Dr Chau Co-Sign Statement: I was available for consultation during this patient's emergency department visit. This chart is signed by myself for administrative purposes only. I did not have direct contact with this patient during this visit. They were seen independently by the APC.
== END 2019-09-25 19:44 | disposition home or self-care (01) ==
PROVIDERS: Emergency Provider Nurse Practitioner Family; PCP Internal Medicine
DX: J22 Unspecified acute lower respiratory infection (principal)
CPT/HCPCS: 36415; 71046; 80053; 83880; 85025; 99284

== ENCOUNTER 2019-10-05 15:51 | Emergency (ER) | payer OTHER, SELFPAY ==
[2019-10-05 15:54] VITALS: BP 146/80; PULSE 69; RESP 16; TEMP 36.9; O2SAT 100; BMI 29.2
--- NOTE | 2019-10-05 16:29 | ED.GENADULT ---
HPI - General Adult General Chief complaint: Syncope Stated complaint: near syncopal episodes today Time Seen by Provider: 10/05/19 16:17 Source: patient Mode of arrival: Ambulatory Limitations: no limitations History of Present Illness HPI narrative: 49-year-old female. Finishing a course of doxycycline for an upper respiratory issue arrives today for what appears to be 3 separate episodes of near-syncope. She states she was standing at the time. She started seeing black. Potentially was having some palpitations. No shortness of breath. Has been coughing was not coughing at that time. Did not specifically pass out. She states that she does feels ?heavy? never any symptoms like this before. States she feels like she is dehydrated. Related Data Home Medications Medication Instructions Recorded Confirmed Lantus U-100 Insulin 17 unit SQ BEDTIME 01/14/19 10/05/19 albuterol sulfate [ProAir HFA] 2 puff INHALATION Q4H PRN 01/14/19 10/05/19 celecoxib [Celebrex] 200 mg PO DAILY 01/14/19 10/05/19 epinephrine 0.3 mg IM PRN PRN 01/14/19 10/05/19 gabapentin 300 mg PO BID-TID 01/14/19 10/05/19 metformin 1 tab PO BID 01/14/19 10/05/19 insulin glargine [Basaglar KwikPen 0 unit SUBCUT DIRECTED 10/05/19 10/05/19 U-100 Insulin] rosuvastatin 5 mg PO DAILY 10/05/19 10/05/19 sumatriptan succinate 25 mg PO PRN PRN 10/05/19 10/05/19 Previous Rx's Medication Instructions Recorded insulin aspart U-100 [Novolog 5 - 10 unit SQ AC 90 Days #0 04/15/13 U-100 Insulin aspart] codeine-guaifenesin [Guaifenesin 10 ml PO Q4-6H PRN #120 ml 09/25/19 AC] doxycycline hyclate 100 mg PO BID #20 cap 09/25/19 Allergies Allergy/AdvReac Type Severity Reaction Status Date / Time Cephalosporins Allergy Unknown Verified 10/05/19 16:01 codeine Allergy Unknown Verified 10/05/19 16:01 erythromycin base Allergy Unknown Verified 10/05/19 16:01 promethazine Allergy Unknown Verified 10/05/19 16:01 Droperidol Allergy Unknown Uncoded 10/05/19 16:01 Ibuprofen Allergy Unknown Uncoded 10/05/19 16:01 Prochlorperazine Allergy Unknown Uncoded 10/05/19 16:01 Review of Systems Constitutional Constitutional: Reports fatigue, Denies fever(s) and Denies headache(s) ENT Ears, Nose, Mouth, and Throat: Denies headache(s) Cardiovascular Cardiovascular: Denies chest pain, Reports rapid heart rate, Reports palpitations and Reports dyspnea Respiratory Respiratory: Reports cough and Reports dyspnea Gastrointestinal Gastrointestinal: Denies abdominal pain, Denies nausea and Denies vomiting Musculoskeletal Musculoskeletal: Denies myalgias and Denies arthralgias Integumentary/Breasts Skin/Breast: Denies lesions and Denies rash Neurologic Neurologic: Denies behavioral changes and Denies headache(s) Psychiatric Psychiatric: Denies behavioral changes Endocrine Endocrine: Reports fatigue and Reports palpitations Hematologic/Lymphatic Hematologic/Lymphatic: Denies easy bleeding and Denies easy bruising Patient History Medical History Diabetes (Acute) Social History Smoking Status: Former smoker alcohol intake: current (On occasion) substance use type: does not use Smoking Status: Former smoker alcohol intake frequency: a few times a month Substance Use Type: does not use Exam Initial Vital Signs Initial Vital Signs: Vital Signs Temperature 98.5 F 10/05/19 15:54 Pulse Rate 69 10/05/19 15:54 Respiratory Rate 16 10/05/19 15:54 Blood Pressure 146/80 H 10/05/19 15:54 Pulse Oximetry 100 10/05/19 15:54 Const General: cooperative, comfortable and well developed Limitations: mental status not altered HENMT Head: normal to inspection and normocephalic Resp Effort & Inspection: normal respiratory effort Auscultation: clear to auscultation bilaterally Cardio Rate: regular rate Rhythm: regular rhythm Pulses: radial pulses present GI Inspection: non-distended Palpation: soft and No firm Skin Lesions: no lesions Rashes: no rashes Neuro General: alert, awake and oriented x3 Cognition: normal cognition Speech: speech normal Gait: normal gait Motor: muscle tone normal throughout Sensory Exam: no sensory deficits noted Extrem General: normal to inspection and capillary refill normal Psych Appearance: grossly normal and well kempt Scores GCS Amy coma scale eye opening: Spontaneous Amy coma scale verbal response: Orientated [place] coma scale motor response: Obey commands [place] coma scale total score: 15 Course Orders Ordered: ED Orders 10/05/19 16:20 Complete Blood Count AUTO DIFF Stat Comprehensive Metabolic Panel Stat Trop I [Troponin I] Stat 10/05/19 17:45 Chest [XR chest 2V] Stat Discontinued Medications Sodium Chloride (Normal Saline 0.9%) 1,000 mls @ 1,000 mls/hr IV BOLUS ONE Stop: 10/05/19 17:32 Last Infusion: 10/05/19 18:29 Dose: 0 mls/hr Documented by: Admin: 10/05/19 16:38 Dose: 1,000 mls/hr Documented by: SAMI Vital Signs Vital signs: Vital Signs - 8 hr 10/05/19 15:54 10/05/19 18:25 Temperature 98.5 F Pulse Rate 69 66 Respiratory Rate 16 16 Blood Pressure 146/80 H Blood Pressure [Right Arm] 120/64 Pulse Oximetry 100 100 Medical Decision Making Lab Data Lab results reviewed: Yes I reviewed the patient's lab results. Result diagrams: 10/05/19 16:20 10/05/19 16:20 Labs: Lab Results 10/05/19 10/05/19 Range/Units 16:20 16:20 WBC 7.9 (4.5-11.0) X10^3/uL RBC 4.48 (4.0-5.2) X10^6/uL Hgb 13.7 (12.0-16.0) g/dL Hct 41.2 (36-46) % MCV 91.9 (80-100) fL MCH 30.6 (26-34) PG MCHC 33.3 (30-36) % RDW 13.4 (11.6-14.8) % Plt Count 469 H (150-400) X10^3/uL Neut % (Auto) 65.3 (50-75) % Lymph % (Auto) 21.1 L (25-40) % [place] % (Auto) 8.7 (3-14) % Eos % (Auto) 4.0 (2-4) % Baso % (Auto) 0.9 (0-2) % Neut # (Auto) 5100 (5800-0526) /uL Lymph # (Auto) 1700 (3416-8441) /uL [place] # (Auto) 700 (0-900) /uL Eos # (Auto) 300 (0-450) /uL Baso # (Auto) 100 (0-100) /uL Sodium 135 L (137-145) mmol/L Potassium 3.6 (3.4-5.1) mmol/L Chloride 98 (98-107) mmol/L Carbon Dioxide 28 (22-32) mmol/L BUN 15 (7-17) mg/dL Creatinine 0.70 (0.52-1.04) mg/dL Estimated GFR > 60.0 (>60) mL/min BUN/Creatinine Ratio 21.4 (6-22) Glucose 261 H (70-100) mg/dL Calcium 9.3 (8.4-10.2) mg/dL Total Bilirubin 0.8 (0.2-1.3) mg/dL AST 25 (14-36) IU/L ALT 19 (<35) IU/L Alkaline Phosphatase 96 (38-126) U/L Troponin I < 0.012 (0.01-0.034) ng/mL Total Protein 7.8 (6.3-8.2) g/dL Albumin 4.6 (3.5-5.0) g/dL Globulin 3.2 (1.7-4.1) g/dL Albumin/Globulin Ratio 1.4 (1.0-2.8) Imaging Data Chest x-ray: Radiologist's Impression: [address] [id number] XRay Report Signed Patient: Karlee Naranjo JMR#: [id number] : 1970Acct:[id number] Age/Sex: 49 / FDate of Service: 10/05/19 Loc: ED Accession Number: [id number] Procedure: XR chest 2V Ordering Provider: Oziel Chau D.O. PROCEDURE: XR CHEST 2V INDICATIONS: syncope/shortness of breath TECHNIQUE: 2 views of the chest were acquired. COMPARISON: [facility], CR, XR CHEST 2VW, 08/16/2016, 12:39. [facility], CR, CHEST 2 VIEW, 12/24/2011, 9:53. [facility], CR, XR CHEST 2V, 09/25/2019, 17:24. FINDINGS: Surgical changes and devices: None. Lungs and pleura: Lungs are clear. No pleural effusions or pneumothorax. Mediastinum: Mediastinal contours are normal. Heart size is normal. Bones and chest wall: No suspicious bony abnormalities. Soft tissues appear unremarkable. IMPRESSION: No acute cardiopulmonary process is seen. Dictated by: Adan Ocasio M.D. on 10/05/2019 at 18:13 Approved by: Adan Ocasio M.D. on 10/05/2019 at 18:15 ECG Data Attestation: I personally reviewed and interpreted this ECG as follows: Prior ECG tracings: not available for review Interpretation: Sinus rhythm Ventricular rate is 63 Normal axis Normal QRS Normal QTC No ST T wave changes MDM Narrative Medical decision making narrative: EKG is unremarkable. Labs show hyperglycemia but no signs of DKA. Chest x-ray is unremarkable. Has a relatively unremarkable exam. She was able to sit and stand and walk at bedside without any issues. Vital signs unremarkable. Low suspicion for CVA or TIA. There is no signs of arrhythmia on her EKG. I did inform her that unfortunately were not monitoring her at that time so we cannot completely rule this out as a etiology. I feel we could hold on further workup for now. We did discuss return precautions and follow-up instructions. She expressed understanding and agreement plan. Discharge Plan Departure Patient Disposition: Home Clinical Impression: Pre-syncope Discharge Date/Time: 10/05/19 19:07 Instructions: Fainting Activity Restrictions/Additional Instructions: Continue your medications as directed. Be sure to increase your fluid intake. Return to the emergency department for any new or worsening symptoms Prescriptions: No Action insulin aspart U-100 [Novolog U-100 Insulin aspart] 100 UNIT/1 ML solution 5 - 10 unit SQ AC 90 Days Qty: 0 RF: 3 celecoxib [Celebrex] 200 mg Capsule 200 mg PO DAILY RF: 0 albuterol sulfate [ProAir HFA] 90 mcg/actuation Hfa Aerosol Inhaler 2 puff Inhalation Q4H PRN (Reason: Shortness Of Breath) RF: 0 metformin 500 mg Tablet Extended Release 24 Hr 1 tab PO BID RF: 0 Lantus U-100 Insulin 100 UNIT/1 ML solution 17 unit SQ BEDTIME RF: 0 gabapentin 300 mg capsule 300 mg PO BID-TID RF: 0 epinephrine 0.3 MG/0.3 ML auto-injector 0.3 mg IM PRN PRN (Reason: Allergic Reaction) RF: 0 doxycycline hyclate 100 mg capsule 100 mg PO BID Qty: 20 RF: 0 codeine-guaifenesin [Guaifenesin AC] 10-100 mg/5 mL liquid 10 ml PO Q4-6H PRN (Reason: cough) Qty: 120 RF: 0 sumatriptan succinate 25 mg tablet 25 mg PO PRN PRN (Reason: Migraine Headache) RF: 0 rosuvastatin 5 mg tablet 5 mg PO DAILY RF: 0 Basaglar KwikPen U-100 Insulin 100 unit/mL (3 mL) insulin pen 0 unit SUBCUT DIRECTED RF: 0 Referrals: Ulisses Mcfadden MD [Primary Care Provider] -
[2019-10-05] MEDS: SODIUM CHLORIDE 0.9% 1,000 ML 1000 ML IV (16:38)
[2019-10-05 16:58] LABS: Add Manual Diff / Slide Review NO; Basophils Absolute Auto 100 /uL (0-100); Basophils Percent Auto 0.9 % (0-2); Eosinophils Absolute Auto 300 /uL (0-450); Hematocrit 41.2 % (36-46); Hemoglobin 13.7 g/dL (12.0-16.0); Lymphocytes Absolute Auto 1700 /uL (1100-4500); Lymphocytes Percent Auto 21.1 % (25-40); Mean Corpuscular HGB Conc 33.3 % (30-36); Mean Corpuscular Hemoglobin 30.6 PG (26-34); Mean Corpuscular Volume 91.9 fL (80-100); Monocytes Absolute Auto 700 /uL (0-900); Monocytes Percent Auto 8.7 % (3-14); Neutrophils Absolute Auto 5100 /uL (1500-7000); Neutrophils Percent Auto 65.3 % (50-75); Platelet Count 469 X10^3/uL (150-400); Red Blood Cell Count 4.48 X10^6/uL (4.0-5.2); Red Cell Distribution Width 13.4 % (11.6-14.8); White Blood Cell Count 7.9 X10^3/uL (4.5-11.0)
[2019-10-05 17:08] LABS: Alanine Aminotransferase 19 IU/L (<35); Albumin 4.6 g/dL (3.5-5.0); Albumin Globulin Ratio 1.4 (1.0-2.8); Alkaline Phosphatase 96 U/L (38-126); Aspartate Aminotransferase 25 IU/L (14-36); BUN Creatinine Ratio 21.4 (6-22); Bilirubin Total 0.8 mg/dL (0.2-1.3); Blood Urea Nitrogen 15 mg/dL (7-17); Calcium 9.3 mg/dL (8.4-10.2); Carbon Dioxide 28 mmol/L (22-32); Chloride 98 mmol/L (98-107); Estimated Glomerular Filt Rate > 60.0 mL/min (>60); Globulin 3.2 g/dL (1.7-4.1); Glucose 261 mg/dL (70-100); HEMOLYSIS 17 (0-50); Potassium 3.6 mmol/L (3.4-5.1); Sodium 135 mmol/L (137-145); Total Protein 7.8 g/dL (6.3-8.2)
[2019-10-05 17:18] LABS: Troponin I < 0.012 ng/mL (0.01-0.034)
--- NOTE | 2019-10-05 17:45 | DI.RAD.S_ITS ---
PROCEDURE: XR CHEST 2V INDICATIONS: syncope/shortness of breath TECHNIQUE: 2 views of the chest were acquired. COMPARISON: [facility], CR, XR CHEST 2VW, 08/16/2016, 12:39. [facility], CR, CHEST 2 VIEW, 12/24/2011, 9:53. [facility], CR, XR CHEST 2V, 09/25/2019, 17:24. FINDINGS: Surgical changes and devices: None. Lungs and pleura: Lungs are clear. No pleural effusions or pneumothorax. Mediastinum: Mediastinal contours are normal. Heart size is normal. Bones and chest wall: No suspicious bony abnormalities. Soft tissues appear unremarkable. IMPRESSION: No acute cardiopulmonary process is seen. Dictated by: Adan Ocasio M.D. on 10/05/2019 at 18:13 Approved by: Adan Ocasio M.D. on 10/05/2019 at 18:15
[2019-10-05 18:25] VITALS: BP 120/64; PULSE 66; RESP 16; O2SAT 100
== END 2019-10-05 19:07 | disposition home or self-care (01) ==
PROVIDERS: Emergency Provider Emergency Medicine; PCP Internal Medicine
DX: R55 Syncope and collapse (principal); E11.65 Type 2 diabetes mellitus with hyperglycemia; Z79.4 Long term (current) use of insulin; R05 Cough; R06.00 Dyspnea, unspecified; R00.2 Palpitations
CPT/HCPCS: 36415; 71046; 80053; 84484; 85025; 93005; 96360; 96361; 99284; 99285